=== PATIENT | male | born 1960 | race Two or more races ===

== ENCOUNTER 2022-01-29 07:47 | Outpatient (CLI) | payer OTHER | END 2022-01-29 07:51 | disposition home or self-care (01) | LOC: MRI 07:47 | PROVIDERS: ATTEND Personal Emergency Response Attendant | DX: M54.50 Low back pain, unspecified (principal); D73.4 Cyst of spleen; N20.0 Calculus of kidney | CPT/HCPCS: 72148 ==

== ENCOUNTER 2022-03-06 11:36 | Emergency (ER) | payer OTHER ==
[~2022-03-06] VITALS: Ht 167.6 cm; Wt 81.6 kg
[2022-03-06] MEDS ORDERED: CRESTOR20 MG PO (11:51)
== END 2022-03-06 15:58 | disposition home or self-care (01) ==
LOC: ER 11:36
DX: R42 Dizziness and giddiness (principal); Z88.0 Allergy status to penicillin; Z91.013 Allergy to seafood

== ENCOUNTER 2022-03-17 10:38 | Outpatient (CLI) | payer OTHER ==
[~2022-03-17 10:38] MED LIST: CRESTOR20 MG PO
== END 2022-03-17 10:56 | disposition home or self-care (01) ==
LOC: MRI 10:38
PROVIDERS: ATTEND General Practice
DX: M50.120 Mid-cervical disc disorder, unspecified level (principal); J44.9 Chronic obstructive pulmonary disease, unspecified
CPT/HCPCS: 72141

== ENCOUNTER 2022-11-23 11:38 | Emergency (ER) | payer OTHER ==
[~2022-11-23] VITALS: Ht 167.6 cm; Wt 80.7 kg
[2022-11-23] MEDS ORDERED: TAMS0.4C PO (15:38)
== END 2022-11-23 15:53 | disposition home or self-care (01) ==
LOC: ER 11:38
DX: R10.2 Pelvic and perineal pain (principal); Z88.0 Allergy status to penicillin; Z91.013 Allergy to seafood

== ENCOUNTER 2022-12-29 06:41 | Outpatient (CLI) | payer OTHER ==
[~2022-12-29 06:41] MED LIST changes: +TAMS0.4C PO
== END 2022-12-29 06:42 | disposition home or self-care (01) ==
LOC: LAB 06:41
DX: I11.9 Hypertensive heart disease without heart failure (principal); E06.3 Autoimmune thyroiditis; N30.00 Acute cystitis without hematuria; N40.0 Benign prostatic hyperplasia without lower urinary tract symptoms; E11.21 Type 2 diabetes mellitus with diabetic nephropathy; Z12.11 Encounter for screening for malignant neoplasm of colon; E11.42 Type 2 diabetes mellitus with diabetic polyneuropathy; E78.2 Mixed hyperlipidemia; D58.8 Other specified hereditary hemolytic anemias

== ENCOUNTER 2022-12-29 07:27 | Outpatient (CLI) | payer OTHER | END 2022-12-29 07:34 | disposition home or self-care (01) | LOC: SONOGRAMA 07:27 | PROVIDERS: ATTEND General Practice | DX: K57.30 Diverticulosis of large intestine without perforation or abscess without bleeding (principal) ==

== ENCOUNTER 2023-01-16 12:06 | Emergency (ER) | payer OTHER ==
[~2023-01-16] VITALS: Ht 165.1 cm; Wt 78.9 kg
[2023-01-16] MEDS ORDERED: METRONIDAZOLE500 MG PO (16:47)
== END 2023-01-16 17:41 | disposition home or self-care (01) ==
LOC: ER 12:06
DX: K64.9 Unspecified hemorrhoids (principal)

== ENCOUNTER 2023-01-18 11:43 | Inpatient (IN) | payer OTHER ==
[~2023-01-18] VITALS: Ht 167.6 cm; Wt 78.9 kg
[~2023-01-18 11:43] MED LIST changes: +METRONIDAZOLE500 MG PO
[2023-01-20] MEDS ORDERED: DICLOFENAC SODI75 MG PO (08:30)
[2023-01-20] MEDS ORDERED: PERCOCET 5-3251 EACH PO (08:30)
[2023-01-20] MEDS ORDERED: TAMS0.4C PO (08:31)
== END 2023-01-20 12:38 | disposition home or self-care (01) | DRG 348 ==
LOC: ER 11:43 → SURG 19:40
PROVIDERS: ADMIT Surgery; ATTEND Surgery
PROC: 06BY0ZC Excision of Hemorrhoidal Plexus, Open Approach (ICD-10-PCS; principal; 2023-01-19 16:00)
DX: K64.5 Perianal venous thrombosis (principal); K62.5 Hemorrhage of anus and rectum; E78.5 Hyperlipidemia, unspecified; N20.0 Calculus of kidney; N40.0 Benign prostatic hyperplasia without lower urinary tract symptoms